=== PATIENT | male | born 1970 | race Caucasian/White ===

== ENCOUNTER 2024-04-05 05:42 | Emergency (ER) | payer BC, OTHER ==
[~2024-04-05] VITALS: Ht 180.3 cm; Wt 88.5 kg
[2024-04-05] MEDS: SODIUM CHLORIDE 0.9% 1,000 ML IV ONE (06:30)
[2024-04-05] MEDS: IOHEXOL 300 MG/ML 100ML BOTTLE IJ ONE (07:00)
[2024-04-05 07:38] VITALS: PULSE 77; RESP 17; TEMP 98; O2SAT 97
[2024-04-05 07:39] LABS: Basophils # (auto) 0 10 ^3/uL (0-0.2); Eosinophils # (auto) 0 10 ^3/uL (0-0.8); Hemoglobin 14.5 g/dL (13.5-17.5); Lymphocytes # (auto) 0.5 10 ^3/uL (0.4-5.4); Monocytes # (auto) 0.4 10 ^3/uL (0-1.3); Neutrophils # (auto) 6.7 10 ^3/uL (1.6-8.6)
[2024-04-05 07:41] LABS: Basophils % (auto) 0.2 % (0.0-2.0); Eosinophils % (auto) 0.3 % (0.0-7.0); Hematocrit 40.6 % (41.0-53.0); Mean Corpuscular Hemoglobin 34.5 pg (28.0-32.0); Mean Corpuscular Hgb Conc. 35.7 g/dL (32.0-36.0); Mean Corpuscular Volume 96.5 fL (80.0-100.0); Monocytes % (auto) 5.4 % (0.0-12.0); Neutrophils % (auto) 87.1 % (37.0-80.0); Platelet Count (auto) 277 10^3/uL (140-450); White Blood Cell 7.7 10^3/uL (4.4-10.8)
[2024-04-05 07:43] LABS: Anion Gap 7 (5-15); Carbon Dioxide 26 mmol/L (20-31); Chloride 108 mmol/L (98-107); Potassium 4.1 mmol/L (3.5-5.1); Sodium 141 mmol/L (136-145)
[2024-04-05 07:44] LABS: Calcium 9.7 mg/dL (8.7-10.4)
[2024-04-05 07:49] LABS: BUN/Creatinine Ratio 14.9 (10.0-20.0); Blood Alcohol < 3.0 mg/dL (<10); Blood Urea Nitrogen 15 mg/dL (9-23); Glucose 103 mg/dL (74-106)
[2024-04-05] MEDS: ONDANSETRON HCL 4 MG/2 ML VIAL IV ONE (08:06)
[2024-04-05] MEDS: MORPHINE SULFATE 4 MG/ML SYR/VIAL IV ONE (08:06)
[2024-04-05 08:07] LABS: Urine Bacteria None Seen /hpf (None Seen)
[2024-04-05 08:29] LABS: Urine Blood 1+ /uL (Negative); Urine Clarity Clear (Clear); Urine Color Light-Yellow (Yellow); Urine Protein, UAD TRACE (Negative); Urine Urobilinogen Normal (Negative); Urine WBC <1 /hpf (0 - 3)
[2024-04-05 08:38] LABS: Urine Specific Gravity > 1.035 (1.001-1.035)
[2024-04-05 09:58] VITALS: BP 128/77; PULSE 63; RESP 17; O2SAT 97
== END 2024-04-05 10:05 | disposition home or self-care (01) ==
LOC: ER 05:42 → EDBD 05:42 → ER 10:05
DX: M54.50 Low back pain, unspecified (principal); M54.2 Cervicalgia; R10.2 Pelvic and perineal pain; M79.18 Myalgia, other site; V49.88XA Car occupant (driver) (passenger) injured in other specified transport accidents, initial encounter; Y93.I9 Activity, other involving external motion; Y92.488 Other paved roadways as the place of occurrence of the external cause; Y99.8 Other external cause status
CPT/HCPCS: 36415; 70450; 71260; 72125; 74177; 80048; 80320; 81001; 84484; 85025; 96361; 96374; 96375; 99285; J2270; J2405; J7030; Q9967

== ENCOUNTER 2024-11-28 10:23 | Day surgery (SDC) | payer OTHER ==
[2024-11-26 12:10] LABS: Urine Bacteria None Seen /hpf (None Seen)
[2024-11-26 12:13] LABS: Basophils # (auto) 0 10 ^3/uL (0-0.2); Basophils % (auto) 0.5 % (0.0-2.0); Eosinophils # (auto) 0.1 10 ^3/uL (0-0.8); Eosinophils % (auto) 2.4 % (0.0-7.0); Hematocrit 44.8 % (41.0-53.0); Lymphocytes # (auto) 0.8 10 ^3/uL (0.4-5.4); Lymphocytes % (auto) 21.8 % (10.0-50.0); Mean Corpuscular Hemoglobin 32.7 pg (28.0-32.0); Mean Corpuscular Hgb Conc. 35.6 g/dL (32.0-36.0); Mean Corpuscular Volume 91.8 fL (80.0-100.0); Monocytes # (auto) 0.3 10 ^3/uL (0-1.3); Monocytes % (auto) 9.1 % (0.0-12.0); Neutrophils # (auto) 2.4 10 ^3/uL (1.6-8.6); Neutrophils % (auto) 66.2 % (37.0-80.0); Nucleated Red Blood Cells % 0.4 %; Platelet Count (auto) 301 10^3/uL (140-450); Red Blood Cells 4.88 10^6/uL (4.5-5.90); Red Cell Distribution Width 13.3 % (11.8-14.3); White Blood Cell 3.6 10^3/uL (4.4-10.8)
[2024-11-26 12:30] LABS: Urine Blood TRACE /uL (Negative); Urine Clarity Clear (Clear); Urine Color Light-Yellow (Yellow); Urine Protein, UAD Negative (Negative); Urine Specific Gravity 1.007 (1.001-1.035); Urine Squamous Epithelial Cell None Seen /hpf (<5); Urine Urobilinogen Normal (Negative); Urine WBC 1 /HPF (0-3); Urine pH 5.5 (5.0-9.0)
[2024-11-26 12:39] LABS: INR 0.96 (0.9-1.15); Prothrombin Time 10.2 sec (9.3-11.8)
[2024-11-26 13:00] LABS: Alanine Aminotransferase 12 U/L (7-40); Alkaline Phosphatase 66 U/L (46-116); Anion Gap 8 (5-15); BUN/Creatinine Ratio 14.6 (10.0-20.0); Blood Urea Nitrogen 14 mg/dL (9-23); Calcium 9.7 mg/dL (8.7-10.4); Carbon Dioxide 23 mmol/L (20-31); Glucose 103 mg/dL (74-106); Sodium 139 mmol/L (136-145); Total Protein 6.8 g/dL (5.7-8.2)
[2024-11-26 13:01] LABS: Albumin 4.8 g/dL (3.2-4.8)
[2024-11-26 13:02] LABS: Aspartate Aminotransferase 13 U/L (13-40); Bilirubin, Total 0.8 mg/dL (0.2-1.0); Chloride 108 mmol/L (98-107)
[~2024-11-28] VITALS: Ht 180.3 cm; Wt 88.9 kg
[2024-11-28] MEDS ORDERED: ceFAZolin 2 GM/D5W50ml 50 ML IV ONE (12:21)
[2024-11-28] MEDS ORDERED: GABAPENTIN 300 MG CAP PO ONE (15:00)
[2024-11-28] MEDS ORDERED: ACETAMINOPHEN IV 1000 MG/100ML (10MG/ML) IV ONE ×2 (15:00→15:08)
[2024-11-28] MEDS ORDERED: CELECOXIB 100 MG CAP PO ONE (15:00)
[2024-11-28] MEDS ORDERED: LIDOCAINE HCL 2% TOP JELLY 5ML TOP ONE (15:06)
[2024-11-28] MEDS ORDERED: GLYCOPYRROLATE 0.2 MG/ML 1ML VIAL ONE (15:07)
[2024-11-28] MEDS ORDERED: PROPOFOL 10 MG/ML 20 ML IV ONE (15:07)
[2024-11-28] MEDS ORDERED: fentaNYL CITRATE 100 MCG/2 ML VL ONE (15:09)
[2024-11-28] MEDS: BUPIVACAINE 0.5% P/F INJ 10 ML VIAL ONE (15:28)
[2024-11-28] MEDS: LIDOCAINE W/ EPINEPHRINE 1% 20ML VIAL ONE (15:28)
[2024-11-28 15:58] VITALS: TEMP 98.5; O2SAT 99
[2024-11-28] MEDS ORDERED: ACE3T PO (15:59)
[2024-11-28] MEDS ORDERED: ONDANSETRON HCL 4 MG/2 ML VIAL IV PRN (16:15)
[2024-11-28] MEDS ORDERED: FLUMAZENIL 0.1 MG/ML INJ 10ML MDV IV PRN (16:15)
[2024-11-28] MEDS ORDERED: NALOXONE HCL 0.4 MG/ML VIAL IV PRN (16:15)
[2024-11-28] MEDS ORDERED: fentaNYL CITRATE 100 MCG/2 ML VL IV PRN (16:15)
[2024-11-28] MEDS ORDERED: hydrALAZINE HCL 20 MG/ML VL IV PRN (16:15)
[2024-11-28] MEDS ORDERED: ePHEDrine SULFATE 50 MG/ML AMP IV PRN (16:15)
[2024-11-28] MEDS ORDERED: HYDROmorphone HCL 2 MG/ML VL/or syr IV PRN (16:15)
[2024-11-28] MEDS: oxyCODONE HCL 5MG TAB PO PRN (16:32)
[2024-11-28 17:02] VITALS: BP 135/67; PULSE 64; RESP 11; O2SAT 97
--- NOTE | 2024-11-28 17:08 | DVHOP ---
DATE OF SURGERY: 11/28/2024 PREOPERATIVE DIAGNOSIS: Left inguinal hernia. POSTOPERATIVE DIAGNOSIS: Left inguinal hernia. SURGEON: Hector Powers MD COMPUTATIONAL THEORY SCIENTIST: Leobardo Baker NP ANESTHESIA: General endotracheal. ANESTHESIOLOGIST: Dennis Cutler. PROCEDURE: Repair of left direct inguinal hernia. DESCRIPTION OF PROCEDURE: Under adequate anesthesia with the patient's skin prepped and draped, the left groin was infiltrated with 0.25% Marcaine and 0.5% Xylocaine with epinephrine mixture. An incision was made deepened with electrocautery through adipose tissues down onto the fibers of the external oblique aponeurosis. The external ring was dilated and a direct herniation was evident. The cord structures were encircled with a Rony drain retracted laterally. A search for an indirect sac was unproductive. The direct herniation was then repaired using nonabsorbable sutures through conjoint tendon and reflecting portion of Poupart's fascia. The wound was irrigated. Irrigant was aspirated. The ilioinguinal nerve was visualized, protected during the operation, and placed into its normal anatomical position after the procedure. The cord structures were returned to their normal anatomical position. The testicle was returned into its normal anatomical position. The wound was closed using Monocryl sutures, Dermabond glue, and Steri-Strips. The patient remained stable throughout the procedure, left the operating room following an accurate needle and sponge counts. His , Coral, was informed by phone at [phone]. MD ELBERT Mayfield/LIAM TID: [id number] RECEIPT: [id number]
== END 2024-11-28 17:12 | disposition home or self-care (01) ==
LOC: SUR 10:23
PROVIDERS: ATTEND Surgery
DX: K40.90 Unilateral inguinal hernia, without obstruction or gangrene, not specified as recurrent (principal); E66.3 Overweight; Z68.27 Body mass index [BMI] 27.0-27.9, adult; Z79.899 Other long term (current) drug therapy; Z98.890 Other specified postprocedural states; Z87.891 Personal history of nicotine dependence
CPT/HCPCS: 36415; 49505; 80053; 81001; 85025; 85610; 85730; 86850; 86900; 86901; C1781; J0690; J2704; J3490; J0131

== ENCOUNTER 2024-12-07 05:28 | Inpatient (IN) | payer OTHER ==
[~2024-12-07] VITALS: Ht 180.3 cm; Wt 91.7 kg
[~2024-12-07 05:28] MED LIST: ACE3T PO
--- NOTE | 2024-12-07 06:54 | ED.PDOC ---
HPI Allergic reaction HPI Comments This is a 54 year old male presenting to the ED with chief complaint of allergic reaction. Patient reports that he had a recent hernia repair performed on 11/28/24 and left wrist surgery, however, since then he has been experiencing generalized urticaria with associated itchiness and lower lip swelling. Patient relays that he was prescribed Brooks, Docusate, and Amoxicillin after his surgeries, however, his rashes continued to occur even after finishing these medications. Patient states that he went to yesterday and was given Prednisone and a steroid injection, but no relief has been noted. Patient notes he is currently taking Benadryl around the clock with minimal relief at this time. Patient denies any throat swelling, SOB, cough, or facial swelling. Chief Complaint: Rash Time Seen by MD: 06:49 Reviewed Notes: Nurses Notes, Medications, Allergies Allergies: Coded Allergies: NO KNOWN ALLERGIES (Unverified , 04/05/24) Home Meds Active Scripts Acetaminophen W/ Codeine (Tylenol W/Cod #3) 1 Tab Tb, 1 TAB PO Q4HP PRN for 10 Days, #50 TAB Prov:SANDRA PRIETO SENIOR ELECTRICAL ESTIMATOR 11/28/24 Information Source: Patient Mode of Arrival: Ambulatory Severity: Moderate Rash: Moderate SOB: None Difficulty swallowing: None Pruritus: Moderate Timing: Days Duration: Since onset Prehospital treatment: None Location: Generalized Exposed to: Unknown Developed: Pruritus, Rash History of: None Modyifying Factors: Diphenhydramine Past Medical History PAST MEDICAL HISTORY: Denies Surgical History: Hernia Repair Surgical History (Other): Left wrist surgery Family History Family History: Reviewed,noncontributory to illness Social History Smoker: Non-Smoker Alcohol: Denies ETOH Use Drugs: Denies Drug Use Lives In: Home Constitutional: denies: chills, diaphoresis, fatigue, fever, malaise, sweats, weakness, others EENTM: denies: blurred vision, double vision, ear bleeding, ear discharge, ear drainage, ear pain, ear ringing, eye pain, eye redness, hearing loss, mouth pain, mouth swelling, nasal discharge, nose bleeding, nose congestion, nose pain, photophobia, tearing, throat pain, throat swelling, voice changes, others Respiratory: denies: cough, hemoptysis, orthopnea, SOB at rest, shortness of breath, SOB with excertion, stridor, wheezing, others Cardiovascular: denies: chest pain, dizzy spells, diaphoresis, Dyspnea on exertion, edema, irregular heart beat, left arm pain, lightheadedness, palpitations, PND, syncope, others Gastrointestinal: denies: abdomen distended, abdominal pain, blood streaked bowels, constipated, diarrhea, dysphagia, difficulty swallowing, hematemesis, melena, nausea, poor appetite, poor fluid intake, rectal bleeding, rectal pain, vomiting, others Genitourinary: denies: burning, dysuria, flank pain, frequency, hematuria, incontinence, penile discharge, penile sore, pain, testicle pain, testicle swelling, urgency, others Neurological: denies: dizziness, fainting, headache, left sided numbness, left sided weakness, numbness, paresthesia, pre-existing deficit, right sided numbness, right sided weakness, seizure, speech problems, tingling, tremors, weakness, others Musculoskeletal: denies: back pain, gout, joint pain, joint swelling, muscle pain, muscle stiffness, neck pain, others Integumetry: denies: bruises, change in color, change in hair/nails, dryness, laceration, lesions, lumps, rash, wounds, others Allergic/Immunocompromised: reports: Hives, Itching; denies: Difficulty Healing, Frequent Infections, others Hematologic/Lymphatic: denies: anemia, blood clots, easy bleeding, easy bruising, swollen glands, others Endocrine: denies: excessive hunger, excessive sweating, excessive thirst, excessive urination, flushing, intolerance to cold, intolerance to heat, unexplained weight gain, unexplained weight loss, others Psychiatric: denies: anxiety, bipolar disorder, depression, hopeless, panic disorder, schizophrenia, sleepless, suicidal, others All Other Systems: Reviewed and Negative Physical Exam General Appearance: No Apparent Distress, Normal HEENT: Normal ENT Inspection, Pharynx Normal, TMs Normal Neck: Full Range of Motion, Non-Tender, Normal, Normal Inspection Respiratory: Chest Non-Tender, Lungs Clear, No Accessory Muscle Use, No Respira tory Distress, Normal Breath Sounds Cardiovascular: No Edema, No JVD, No Murmur, No Gallop, Normal Peripheral Pulses, Regular Rate/Rhythm Breast Exam: Deferred Gastrointestinal: No Organomegaly, Non Tender, No Pulsatile Mass, Normal Bowel Sounds, Soft Genitalia: Deferred Pelvic: Deferred Rectal: Deferred Extremities: No calf tenderness, Normal capillary refill, Normal inspection, Normal range of motion, Non-tender, No pedal edema Musculoskeletal : Apperance: Normal Neurologic: Alert, job captain II-XII nml as Tested, No Motor Deficits, Normal Affect, Normal Mood, No Sensory Deficits Cerebellar Function: Normal Reflexes: Normal Skin: Dry, Warm, Other (Generalized urticaria noted.) Lymphatic: No Adenopathy Was a procedure done? Was a procedure done?: No Differential diagnosis (all) Differential Diagnosis: Hypotension, Urticaria X-Ray, Labs, Meds, VS Vital Signs Date Time Temp Pulse Resp B/P (MAP) Pulse Ox O2 Delivery O2 Flow Rate FiO2 12/07/24 08:44 97.5 65 16 138/85 (102) 98 97.5 12/07/24 07:28 64 17 95 Room Air* 0 21 12/07/24 06:58 97.6 60 17 143/89 (107) 95 97.6 12/07/24 05:28 97.8 65 17 136/92 (107) 95 97.8 Lab Test 12/07/24 07:30 12/07/24 07:04 Range/Units Urine Color Light-yellow Yellow Urine Clarity Clear Clear Urine pH 5.0 5.0-9.0 Urine Specific [place] 1.012 1.001-1.035 Urine Protein Negative Negative Urine Ketones Negative Negative Urine Blood Negative Negative /uL Urine Nitrite Negative Negative Urine Bilirubin Negative Negative Urine Urobilinogen Normal Negative mg/dL Urine Leukocyte Esterase Negative Negative /uL Urine RBC 1 0 - 3 /hpf Urine Microscopic WBC 1 0-3 /HPF Urine Squamous Epithelial Cells None seen <5 /hpf Urine Bacteria None seen None Seen /hpf Urine Glucose Normal Normal mg/dL White Blood Count 11.5 H 4.4-10.8 10^3/uL Red Blood Count 4.72 4.5-5.90 10^6/uL Hemoglobin 15.8 13.5-17.5 g/dL Hematocrit 44.0 41.0-53.0 % Mean Corpuscular Volume 93.2 80.0-100.0 fL Mean Corpuscular Hemoglobin 33.5 H 28.0-32.0 pg Mean Corpuscular Hemoglobin Concent 35.9 32.0-36.0 g/dL Red Cell Distribution Width 13.3 11.8-14.3 % Platelet Count 359 140-450 10^3/uL Mean Platelet Volume 6.6 L 6.9-10.8 fL Neutrophils (%) (Auto) 88.9 H 37.0-80.0 % Lymphocytes (%) (Auto) 7.3 L 10.0-50.0 % Monocytes (%) (Auto) 3.4 0.0-12.0 % Eosinophils (%) (Auto) 0.2 0.0-7.0 % Basophils (%) (Auto) 0.2 0.0-2.0 % Neutrophils # (Auto) 10.2 H 1.6-8.6 10 ^3/uL Lymphocytes # (Auto) 0.8 0.4-5.4 10 ^3/uL Monocytes # (Auto) 0.4 0-1.3 10 ^3/uL Eosinophils # (Auto) 0 0-0.8 10 ^3/uL Basophils # (Auto) 0 0-0.2 10 ^3/uL Nucleated Red Blood Cells 0.1 % Sodium Level 141 136-145 mmol/L Potassium Level 4.0 3.5-5.1 mmol/L Chloride Level 106 98-107 mmol/L Carbon Dioxide Level 23 20-31 mmol/L Anion Gap 12 5-15 Blood Urea Nitrogen 18 9-23 mg/dL Creatinine 1.06 0.700-1.30 mg/dL Glomerular Filtration Rate Calc 82 >90 mL/min BUN/Creatinine Ratio 17.0 10.0-20.0 Serum Glucose 108 H 74-106 mg/dL Calcium Level 9.7 8.7-10.4 mg/dL Current Medications Medications (Trade) Dose Ordered Sig/Stephanie Route Start Time Stop Time Status Last Admin Sodium Chloride 1,000 ml @ 1,000 mls/hr Q1H ONCE IV 12/07/24 06:45 12/07/24 07:44 DC 12/07/24 07:02 Famotidine (Pepcid Injection) 20 mg ONCE ONCE IV 12/07/24 06:45 12/07/24 06:46 DC 12/07/24 07:03 Methylprednisolone Sodium Succinate (Solu Medrol) 62.5 mg ONCE ONCE IV 12/07/24 06:45 12/07/24 06:46 DC 12/07/24 07:03 CT Abd/Pel W/ IV Con: [facility] [id number] [facility] [address] Ph: [phone] DIAGNOSTIC IMAGING Diagnostic Imaging Report : [id number] Signed PATIENT: TAMIR MARTINEZ ACCT: [id number] UNIT: [id number] : 1970 LOC: ER ROOM / BED: / AGE / SEX: 54 / M ADM STATUS: REG ER SERVICE [id number] ORDERING PHYSICIAN: ABISAI JAMISON MD PROCEDURE(s): ABPLIV - CT AB PEL WITH IV CON ONLY REASON: lower abdominal pain and swelling s/p inguinal surgery ORDER NUMBER(s): [id number], ACCESSION NUMBER(s): [id number] CT CT AB PEL WITH IV CON ONLY INDICATION: lower abdominal pain and swelling s/p inguinal surgery EXAM DATE: 12/07/2024 08:13 AM COMPARISON: CT CT CHEST/AB/PL W CON- IV ONLY on DOS: 04/05/24 RADIATION DOSE: CTDIvol: 11.58 mGy, DLP: 676.31 mGy*cm PROCEDURE: Helical CT images were obtained of the abdomen and pelvis with IV contrast Sagittal and coronal reconstructions are provided. ORAL CONTRAST: None. ADDITIONAL IMAGES / REFORMATS: None All CT scans at this medical facility are performed using dose modulation techniques as appropriate to a performed exam including the following: Automated exposure control was utilized; adjustment of the MA and/or KV according to patient size; and use of iterative reconstruction technique. FINDINGS: LUNG BASE: 6 mm left basilar subpleural pulmonary nodule. LIVER: Normal. GALLBLADDER AND BILIARY TREE: No calcified gallstones. Normal caliber wall. No intra- or extrahepatic biliary ductal dilation. PANCREAS: Normal. SPLEEN: Normal. BOWEL: Normal. Normal appendix. ADRENALS: Normal. KIDNEYS AND URETER: 1.1 cm nonobstructive right kidney stone. BLADDER: Normal. REPRODUCTIVE ORGANS: Normal. LYMPH NODES:No lymphadenopathy. PERITONEUM: No ascites or free air. No other fluid collection. VESSELS: Scattered atherosclerotic calcifications are noted. RETROPERITONEUM: Normal. ABDOMINAL WALL: Fluid in the left inguinal canal could be a seroma. BONES: Scattered osseous degenerative changes are noted. IMPRESSION: No acute intraabdominal abnormality. 1.1 cm nonobstructive right kidney stone. Fluid near the left inguinal canal could be a seroma measures 4.2 cm. ATED BY: ROBERTO FISH MD DICTATED DATE/TIME: 12/07/24902 SIGNED BY: ROBERTO FISH MD SIGNED DATE/TIME: 12/07/24902 CC: Images Reviewed?: Images reviewed and evaluated by me Time of 1ST Reevaluation: 07:49 Reevaluation 1ST: Unchanged Patient Education/Counseling: Diagnosis, Treatment Family Education/Counseling: No Family Present Departure 1 Departure Time of Disposition: 10:00 (Patient with a large kidney stone in his well as a likely seroma. The patient has consistent urticaria and concerning for allergic reaction. We will admit patient for further workup and expert consultation) Impression: Primary Impression: Renal colic on right side Additional Impressions: Urticaria Seroma Disposition: ADMITTED INPATIENT Admit to: Med Surg Condition: Serious Critical Care Note Critical Care Time?: No Stability Stability form required: No Heart Score Heart Score: Heart Score Response (Comments) Value History N/A 0 EKG N/A 0 Age N/A 0 Risk Factors N/A 0 Troponin N/A 0 Total 0 I personally scribed for ABISAI JAMISON MD ([email or web address]) on 12/07/24 at 06:54. Electronically submitted by Philippe Bustos ([email or web address]). I personally scribed for ABISAI JAMISON MD ([email or web address]) on 12/07/24 at 09:44. Electronically submitted by Philippe Bustos ([email or web address]). ABISAI JAMISON MD Dec 07, 2024 06:54
[2024-12-07] MEDS: SODIUM CHLORIDE 0.9% 1,000 ML IV ONE (07:02)
[2024-12-07] MEDS: methylPREDNISolone SOD SUCC 125 MG/2 ML VL IV ONE (07:03)
[2024-12-07] MEDS: FAMOTIDINE (10MG/ML) 2ML VL IV ONE (07:03)
[2024-12-07 07:28] VITALS: PULSE 64; RESP 17; O2SAT 95
[2024-12-07 07:28] LABS: Basophils # (auto) 0 10 ^3/uL (0-0.2); Basophils % (auto) 0.2 % (0.0-2.0); Eosinophils # (auto) 0 10 ^3/uL (0-0.8); Eosinophils % (auto) 0.2 % (0.0-7.0); Hemoglobin 15.8 g/dL (13.5-17.5); Lymphocytes # (auto) 0.8 10 ^3/uL (0.4-5.4); Lymphocytes % (auto) 7.3 % (10.0-50.0); Mean Corpuscular Hemoglobin 33.5 pg (28.0-32.0); Mean Corpuscular Hgb Conc. 35.9 g/dL (32.0-36.0); Mean Corpuscular Volume 93.2 fL (80.0-100.0); Monocytes # (auto) 0.4 10 ^3/uL (0-1.3); Monocytes % (auto) 3.4 % (0.0-12.0); Neutrophils # (auto) 10.2 10 ^3/uL (1.6-8.6); Neutrophils % (auto) 88.9 % (37.0-80.0); Nucleated Red Blood Cells % 0.1 %; Platelet Count (auto) 359 10^3/uL (140-450); Red Blood Cells 4.72 10^6/uL (4.5-5.90); Red Cell Distribution Width 13.3 % (11.8-14.3); White Blood Cell 11.5 10^3/uL (4.4-10.8)
[2024-12-07 07:45] LABS: Chloride 106 mmol/L (98-107); Sodium 141 mmol/L (136-145)
[2024-12-07 07:46] LABS: Anion Gap 12 (5-15); Calcium 9.7 mg/dL (8.7-10.4); Carbon Dioxide 23 mmol/L (20-31)
[2024-12-07 07:51] LABS: Blood Urea Nitrogen 18 mg/dL (9-23)
[2024-12-07 07:53] LABS: Glucose 108 mg/dL (74-106)
[2024-12-07 07:55] LABS: Urine Bacteria None Seen /hpf (None Seen)
[2024-12-07 08:10] LABS: Urine Blood Negative /uL (Negative); Urine Clarity Clear (Clear); Urine Color Light-Yellow (Yellow); Urine Protein, UAD Negative (Negative); Urine Specific Gravity 1.012 (1.001-1.035); Urine Squamous Epithelial Cell None Seen /hpf (<5); Urine Urobilinogen Normal (Negative); Urine WBC 1 /HPF (0-3)
[2024-12-07] MEDS: IOHEXOL 300 MG/ML 100ML BOTTLE IJ ONE (08:22)
--- NOTE | 2024-12-07 09:06 | DVH ---
CT CT AB PEL WITH IV CON ONLY INDICATION: lower abdominal pain and swelling s/p inguinal surgery EXAM DATE: 12/07/2024 08:13 AM COMPARISON: CT CT CHEST/AB/PL W CON- IV ONLY on DOS: 04/05/24 RADIATION DOSE: CTDIvol: 11.58 mGy, DLP: 676.31 mGy*cm PROCEDURE: Helical CT images were obtained of the abdomen and pelvis with IV contrast Sagittal and co estefany reconstructions are provided. ORAL CONTRAST: None. ADDITIONAL IMAGES / REFORMATS: None All CT s cans at this medical facility are performed using dose modulation techniques as appropriate to a perf ormed exam including the following: Automated exposure control was utilized; adjustment of the MA and /or KV according to patient size; and use of iterative reconstruction technique. FINDINGS: LUNG BASE: 6 mm left basilar subpleural pulmonary nodule. LIVER: Normal. GALLBLADDER AND BILIARY TREE: No calcified gallstones. Normal caliber wall. No intra- or extrahepatic biliary ductal dilation. PANCREAS: Normal. SPLEEN: Normal. BOWEL: Normal. Normal appendix. ADRENALS: Normal. KIDNEYS AND URETER: 1.1 cm nonobstructive right kidney stone. BLADDER: Normal. REPRODUCTIVE ORGANS: Normal. LYMPH NODES:No lymphadenopathy. PERITONEUM: No ascites or free air. No other fluid collection. VESSELS: Scattered atherosclerotic calcifications are noted. RETROPERITONEUM: Normal. ABDOMINAL WALL: Fluid in the left inguinal canal could be a seroma. BONES: Scattered osseous degenerative changes are noted. IMPRESSION: No acute intraabdominal abnormality. 1.1 cm nonobstructive right kidney stone. Fluid near the left inguinal canal could be a seroma measures 4.2 cm.
--- NOTE | 2024-12-07 16:57 | DVHHP2 ---
History of Present Illness Reason for Visit: allergy reaction History of Present Illness This is a 54-year-old male presenting to the ED with a chief complaint of an allergic reaction. He reports undergoing a left inguinal hernia repair on 11/28/24 . Following these procedures, he was prescribed [place], Docusate, and Amoxicillin. Since then, he has developed persistent, generalized urticaria with associated pruritus and lower lip swelling. Despite a course of Prednisone and a steroid injection, symptoms have not improved. The patient has been taking Benadryl around the clock with minimal relief. He denies any throat swelling, shortness of breath, cough, or facial swelling. He sought care at an urgent care without improvement. Allergies: No known drug allergies. Past Medical History: Hernia repair Denies other medical history Surgical History: Left wrist surgery Hernia repair Family History: Non-contributory Social History: Denies tobacco, alcohol, or drug use Lives at home Review of Systems Review of Systems Negative except for pruritus and rash. Allergies: Coded Allergies: NO KNOWN ALLERGIES (Unverified , 04/05/24) Medications Current Medications Medications Dose Ordered Sig/Stephanie Route Start Time Stop Time Status Last Admin Dose Admin Enoxaparin Sodium 40 mg DAILY SC 12/08/24 10:00 Prednisone 40 mg DAILY PO 12/08/24 10:00 Acetaminophen 325 mg Q4HP PRN PO 12/07/24 14:45 Pantoprazole Sodium 40 mg DAILY IV 12/08/24 10:00 Exam Vital Signs Vital Signs Date Time Temp Pulse Resp B/P (MAP) Pulse Ox O2 Delivery O2 Flow Rate FiO2 12/07/24 14:24 98.0 73 17 122/66 (84) 95 98.0 12/07/24 07:28 Room Air* 0 21 Exam General: No acute distress Skin: Diffuse urticaria, no angioedema HEENT: No oropharyngeal edema Respiratory: Lungs clear to auscultation Cardiac: RRR, no murmurs GI: Soft, nontender Neuro: Alert and oriented Extremities: No edema Labs/Xrays Labs Test 12/07/24 07:30 12/07/24 07:04 Range/Units Urine Color Light-yellow Yellow Urine Clarity Clear Clear Urine pH 5.0 5.0-9.0 Urine Specific [place] 1.012 1.001-1.035 Urine Protein Negative Negative Urine Ketones Negative Negative Urine Blood Negative Negative /uL Urine Nitrite Negative Negative Urine Bilirubin Negative Negative Urine Urobilinogen Normal Negative mg/dL Urine Leukocyte Esterase Negative Negative /uL Urine RBC 1 0 - 3 /hpf Urine Microscopic WBC 1 0-3 /HPF Urine Squamous Epithelial Cells None seen <5 /hpf Urine Bacteria None seen None Seen /hpf Urine Glucose Normal Normal mg/dL White Blood Count 11.5 H 4.4-10.8 10^3/uL Red Blood Count 4.72 4.5-5.90 10^6/uL Hemoglobin 15.8 13.5-17.5 g/dL Hematocrit 44.0 41.0-53.0 % Mean Corpuscular Volume 93.2 80.0-100.0 fL Mean Corpuscular Hemoglobin 33.5 H 28.0-32.0 pg Mean Corpuscular Hemoglobin Concent 35.9 32.0-36.0 g/dL Red Cell Distribution Width 13.3 11.8-14.3 % Platelet Count 359 140-450 10^3/uL Mean Platelet Volume 6.6 L 6.9-10.8 fL Neutrophils (%) (Auto) 88.9 H 37.0-80.0 % Lymphocytes (%) (Auto) 7.3 L 10.0-50.0 % Monocytes (%) (Auto) 3.4 0.0-12.0 % Eosinophils (%) (Auto) 0.2 0.0-7.0 % Basophils (%) (Auto) 0.2 0.0-2.0 % Neutrophils # (Auto) 10.2 H 1.6-8.6 10 ^3/uL Lymphocytes # (Auto) 0.8 0.4-5.4 10 ^3/uL Monocytes # (Auto) 0.4 0-1.3 10 ^3/uL Eosinophils # (Auto) 0 0-0.8 10 ^3/uL Basophils # (Auto) 0 0-0.2 10 ^3/uL Nucleated Red Blood Cells 0.1 % Sodium Level 141 136-145 mmol/L Potassium Level 4.0 3.5-5.1 mmol/L Chloride Level 106 98-107 mmol/L Carbon Dioxide Level 23 20-31 mmol/L Anion Gap 12 5-15 Blood Urea Nitrogen 18 9-23 mg/dL Creatinine 1.06 0.700-1.30 mg/dL Glomerular Filtration Rate Calc 82 >90 mL/min BUN/Creatinine Ratio 17.0 10.0-20.0 Serum Glucose 108 H 74-106 mg/dL Calcium Level 9.7 8.7-10.4 mg/dL Assessment/Plan Assessment/Plan #Severe, allergic reaction #s/p hernia repair, left 11/28/24 #Nephrolitihiasis #1.1 cm nonobstructive right renal stone #6 mm left basilar pulmonary nodule #Fluid in the left inguinal canal, possibly a seroma measuring up to 1.2 cm Admit Med/Surg Tylenol PRN Protonix IV Prednisone PO 40 mg daily Fu with surgeon and PCP due to seroma and pulmonary nodule Case discussed with Dr Templeton Plan discussed with: Patient, Other My Orders Orders - CHINO SILVER Procedure Category Date Status Time Admit ADMIT 12/07/24 Transmitted 14:34 Code Status CODE 12/07/24 Transmitted 14:34 Vital Signs [facility] 12/07/24 In Process 14:34 Review Orders With [facility] 12/07/24 In Process Adm. 14:34 Regular Diet DIET 12/07/24 Transmitted Dinner Notify Md Of Changes [facility] 12/07/24 In Process From Base 14:34 Advance Directive [facility] 12/07/24 In Process 14:34 Patient Condition ORDERS 12/07/24 Transmitted 14:34 Allergies [facility] 12/07/24 In Process 14:34 Enoxaparin Sodium PHA 12/08/24 In Process (Lovenox) 10:00 Prednisone Tablet PHA 12/08/24 In Process 10:00 Acetaminophen Tablet PHA 12/07/24 In Process (Tylenol Tablet) 14:45 Pantoprazole PHA 12/08/24 In Process (Protonix) 10:00 Date of Service: Dec 07, 2024 Billing Provider: CHINO SILVER Common Visit Codes: 28086-EODMLCG INP/OBS CARE (HIGH) Secondary Visit Codes: 13083-AHVWGFUW CARE PLAN 30 MINUTES CHINO SILVER Dec 07, 2024 16:57
[2024-12-07 17:00] VITALS: BP 114/65; PULSE 65; RESP 18; TEMP 98.1; O2SAT 95
[2024-12-07] MEDS: ACETAMINOPHEN 325 MG TAB PO PRN (19:36)
[2024-12-07 20:00] VITALS: BP 122/71; PULSE 83; RESP 16; TEMP 98.1; O2SAT 98
[2024-12-08] VITALS (8 sets, daily range): BP systolic 112–147; BP diastolic 63–80; PULSE 57–70; RESP 16–20; TEMP 97–98.4; O2SAT 94–97
[2024-12-08] MEDS: ENOXAPARIN SOD 40 MG/0.4 ML SYRINGE SC SCH (09:56)
[2024-12-08] MEDS: PANTOPRAZOLE 40 MG/10 ML VIAL INJ IV SCH (09:56)
[2024-12-08] MEDS: methylPREDNISolone SOD SUCC 40 MG/ML VL IV ONE (09:56)
[2024-12-08] MEDS: diphenhdrAMINE HCL 50 MG/1 ML VL IV ONE (09:57)
[2024-12-08] MEDS ORDERED: predniSONE 20 MG TAB PO SCH (10:00)
--- NOTE | 2024-12-08 11:25 | DVHPN2 ---
Progress Note Objective vital signs Vital Sign Date Time Temp Pulse Resp B/P (MAP) Pulse Ox O2 Delivery O2 Flow Rate FiO2 12/08/24 09:00 97.6 68 16 133/74 (93) 95 97.6 12/08/24 08:10 Room Air* 0 21 Total Intake and Output 12/07/24 12/07/24 12/08/24 15:00 23:00 07:00 Intake Total 1000 ml 700 ml Balance 1000 ml 700 ml medications Current Medications Medications Dose Ordered Sig/Stephanie Route Start Time Stop Time Status Last Admin Dose Admin Enoxaparin Sodium 40 mg DAILY SC 12/08/24 10:00 12/08/24 09:56 40 MG Prednisone 40 mg DAILY PO 12/08/24 10:00 Cancel Acetaminophen 325 mg Q4HP PRN PO 12/07/24 14:45 12/07/24 19:36 325 MG Pantoprazole Sodium 40 mg DAILY IV 12/08/24 10:00 12/08/24 09:56 40 MG Hydroxyzine Pamoate 25 mg Q6HP PRN PO 12/08/24 10:00 laboratory and microbiology Laboratory Tests 12/07/24 07:04 Test 12/07/24 07:04 Range/Units Serum Glucose 108 H 74-106 mg/dL My Orders My Orders Orders - CHINO SILVER Procedure Category Date Status Time Admit ADMIT 12/07/24 Transmitted 14:34 Code Status CODE 12/07/24 Transmitted 14:34 Vital Signs [facility] 12/07/24 In Process 14:34 Review Orders With SATHISH 12/07/24 In Process Adm. 14:34 Regular Diet DIET 12/07/24 Transmitted Dinner Notify Of Changes [facility] 12/07/24 In Process From Base 14:34 Advance Directive [facility] 12/07/24 In Process 14:34 Patient Condition ORDERS 12/07/24 Transmitted 14:34 Allergies SATHISH 12/07/24 In Process 14:34 Enoxaparin Sodium PHA 12/08/24 In Process (Lovenox) 10:00 Acetaminophen Tablet PHA 12/07/24 In Process (Tylenol Tablet) 14:45 Pantoprazole PHA 12/08/24 In Process (Protonix) 10:00 Mrsa Screen SAYDA 12/07/24 In Process 22:19 * Wound Consult CONS 12/08/24 Transmitted Hydroxyzine Oral PHA 12/08/24 In Process (Vistaril Oral) 10:00 CHINO SILVER RESIDENT Dec 08, 2024 11:25
--- NOTE | 2024-12-08 12:09 | DVHPNRES ---
Progress Note Date Seen: Dec 08, 2024 Resident Creating Document: CHINO SILVER RESIDENT Has the PT tested + for MRSA If YES, has PT been informed?: No Medical Necessity Reason Pt with a Central, PICC or Fol: No Subjective Review of Systems This is a 54-year-old male presenting to the ED with a chief complaint of an allergic reaction. He reports undergoing a left inguinal hernia repair on 11/28/24 . Following these procedures, he was prescribed [place], Docusate, and Amoxicillin. Since then, he has developed persistent, generalized urticaria with associated pruritus and lower lip swelling. Despite a course of Prednisone and a steroid injection, symptoms have not improved. The patient has been taking Benadryl around the clock with minimal relief. He denies any throat swelling, shortness of breath, cough, or facial swelling. He sought care at an urgent care without improvement. 12/08/24: patient had hives in his torso and abdomen today 8 am, solumedrol and bendaryl given, patient will be advised to see an loading machine operator as outpatient Objective vital signs Vital Sign Date Time Temp Pulse Resp B/P (MAP) Pulse Ox O2 Delivery O2 Flow Rate FiO2 12/08/24 09:00 97.6 68 16 133/74 (93) 95 97.6 12/08/24 08:10 Room Air* 0 21 Total Intake and Output 12/07/24 12/07/24 12/08/24 15:00 23:00 07:00 Intake Total 1000 ml 700 ml Balance 1000 ml 700 ml medications Current Medications Medications Dose Ordered Sig/Stephanie Route Start Time Stop Time Status Last Admin Dose Admin Enoxaparin Sodium 40 mg DAILY SC 12/08/24 10:00 12/08/24 09:56 40 MG Prednisone 40 mg DAILY PO 12/08/24 10:00 Cancel Acetaminophen 325 mg Q4HP PRN PO 12/07/24 14:45 12/07/24 19:36 325 MG Pantoprazole Sodium 40 mg DAILY IV 12/08/24 10:00 12/08/24 09:56 40 MG Hydroxyzine Pamoate 25 mg Q6HP PRN PO 12/08/24 10:00 Prednisone 40 mg DAILY PO 12/09/24 10:00 UNV Examination General: No acute distress Skin: Diffuse urticaria, no angioedema HEENT: No oropharyngeal edema Respiratory: Lungs clear to auscultation Cardiac: RRR, no murmurs GI: Soft, nontender Neuro: Alert and oriented Extremities: No edema laboratory and microbiology Laboratory Tests 12/07/24 07:04 Test 12/07/24 07:04 Range/Units Serum Glucose 108 H 74-106 mg/dL Problem List/Assessment/Plan Problem List/Assessment/Plan #Severe, allergic reaction #s/p hernia repair, left 11/28/24 #Nephrolitihiasis #1.1 cm nonobstructive right renal stone #6 mm left basilar pulmonary nodule #Fluid in the left inguinal canal, possibly a seroma measuring up to 1.2 cm Admit Med/Surg Tylenol PRN Protonix IV Prednisone PO 40 mg daily solumedrol and benadryl given Hydroxyzine PRN Fu with surgeon and PCP due to seroma and pulmonary nodule Case discussed with Dr Templeton Plan discussed with: Patient, Other My Orders My Orders Orders - CHINO SILVER RESIDENT Procedure Category Date Status Time Admit ADMIT 12/07/24 Transmitted 14:34 Code Status CODE 12/07/24 Transmitted 14:34 Vital Signs SATHISH 12/07/24 In Process 14:34 Review Orders With SATHISH 12/07/24 In Process Adm.Md 14:34 Regular Diet DIET 12/07/24 Transmitted Dinner Notify Md Of Changes SATHISH 12/07/24 In Process From Base 14:34 Advance Directive SATHISH 12/07/24 In Process 14:34 Patient Condition ORDERS 12/07/24 Transmitted 14:34 Allergies SATHISH 12/07/24 In Process 14:34 Enoxaparin Sodium PHA 12/08/24 In Process (Lovenox) 10:00 Acetaminophen Tablet PHA 12/07/24 In Process (Tylenol Tablet) 14:45 Pantoprazole PHA 12/08/24 In Process (Protonix) 10:00 Mrsa Screen SAYDA 12/07/24 In Process 22:19 * Wound Consult CONS 12/08/24 Transmitted Hydroxyzine Oral PHA 12/08/24 In Process (Vistaril Oral) 10:00 Prednisone Tablet PHA 12/09/24 Logged 10:00 CHINO SILVER RESIDENT Dec 08, 2024 12:09
[2024-12-08] MEDS: hydrOXYzine 25 MG TAB or CAP PO PRN (18:48)
[2024-12-09 01:00] VITALS: BP 119/76; PULSE 84; RESP 18; TEMP 97; O2SAT 98
[2024-12-09 05:00] VITALS: BP 109/80; PULSE 56; RESP 17; TEMP 97.8; O2SAT 95
[2024-12-09 09:00] VITALS: BP 127/84; PULSE 51; RESP 18; TEMP 97.5; O2SAT 96
[2024-12-09] MEDS: predniSONE 20 MG TAB PO SCH (09:05)
[2024-12-09] MEDS ORDERED: DIPH1CRE TOP (11:22)
[2024-12-09] MEDS ORDERED: PRED20TA2 PO (11:22)
[2024-12-09] MEDS ORDERED: DIPH-515 GT (11:22)
--- NOTE | 2024-12-09 11:24 | DVHDSRES ---
Discharge Summary Date of Admission Resident Creating Document: CHINO SILVER RESIDENT Dec 07, 2024 at 14:34 Date of Discharge: Dec 09, 2024 Admitting Diagnosis Allergic reaction Labs/Diagnostic Data: Laboratory Results Test 12/07/24 07:30 12/07/24 07:04 Urine Color Light-yellow (Yellow) Urine Clarity Clear (Clear) Urine pH 5.0 (5.0-9.0) Urine Specific [place] 1.012 (1.001-1.035) Urine Protein Negative (Negative) Urine Ketones Negative (Negative) Urine Blood Negative /uL (Negative) Urine Nitrite Negative (Negative) Urine Bilirubin Negative (Negative) Urine Urobilinogen Normal mg/dL (Negative) Urine Leukocyte Esterase Negative /uL (Negative) Urine RBC 1 /hpf (0 - 3) Urine Microscopic WBC 1 /HPF (0-3) Urine Squamous Epithelial Cells None seen /hpf (<5) Urine Bacteria None seen /hpf (None Seen) Urine Glucose Normal mg/dL (Normal) White Blood Count 11.5 10^3/uL (4.4-10.8) Red Blood Count 4.72 10^6/uL (4.5-5.90) Hemoglobin 15.8 g/dL (13.5-17.5) Hematocrit 44.0 % (41.0-53.0) Mean Corpuscular Volume 93.2 fL (80.0-100.0) Mean Corpuscular Hemoglobin 33.5 pg (28.0-32.0) Mean Corpuscular Hemoglobin Concent 35.9 g/dL (32.0-36.0) Red Cell Distribution Width 13.3 % (11.8-14.3) Platelet Count 359 10^3/uL (140-450) Mean Platelet Volume 6.6 fL (6.9-10.8) Neutrophils (%) (Auto) 88.9 % (37.0-80.0) Lymphocytes (%) (Auto) 7.3 % (10.0-50.0) Monocytes (%) (Auto) 3.4 % (0.0-12.0) Eosinophils (%) (Auto) 0.2 % (0.0-7.0) Basophils (%) (Auto) 0.2 % (0.0-2.0) Neutrophils # (Auto) 10.2 10 ^3/uL (1.6-8.6) Lymphocytes # (Auto) 0.8 10 ^3/uL (0.4-5.4) Monocytes # (Auto) 0.4 10 ^3/uL (0-1.3) Eosinophils # (Auto) 0 10 ^3/uL (0-0.8) Basophils # (Auto) 0 10 ^3/uL (0-0.2) Nucleated Red Blood Cells 0.1 % Sodium Level 141 mmol/L (136-145) Potassium Level 4.0 mmol/L (3.5-5.1) Chloride Level 106 mmol/L (98-107) Carbon Dioxide Level 23 mmol/L (20-31) Anion Gap 12 (5-15) Blood Urea Nitrogen 18 mg/dL (9-23) Creatinine 1.06 mg/dL (0.700-1.30) Glomerular Filtration Rate Calc 82 mL/min (>90) BUN/Creatinine Ratio 17.0 (10.0-20.0) Serum Glucose 108 mg/dL (74-106) Calcium Level 9.7 mg/dL (8.7-10.4) Other Laboratory Tests 12/07/24 07:04 Brief Hx & Hospital Course: This is a 54-year-old male presenting to the ED with a chief complaint of an allergic reaction. He reports undergoing a left inguinal hernia repair on 11/28/24 . Following these procedures, he was prescribed [place], Docusate, and Amoxicillin. Since then, he has developed persistent, generalized urticaria with associated pruritus and lower lip swelling. Despite a course of Prednisone and a steroid injection, symptoms have not improved. The patient has been taking Benadryl around the clock with minimal relief. He denies any throat swelling, shortness of breath, cough, or facial swelling. He sought care at an urgent care without improvement. Hospital course: Was admitted at the line of severe allergic reaction to possible amoxicillin/docusate/[place]. The patient was given methylprednisolone, IV fluid, Protonix and Benadryl. Abdominal CT scan showed 1.1 cm nonobstructive right kidney stone otherwise no significant intra-abdominal abnormalities. On 12/09/2024, the patient was feeling better since admission. Body rash and pruritus had decreased, discharge plan discussed with the patient the patient discharged home. Discharge plan: Follow up with the PCP within 1 week of the discharge Tablet prednisone 40 mg daily for 5 days Tablet Benadryl as needed for pruritus for 5 days EpiPen injection (2), as needed in case of severe allergic reaction, the patient was educated how to use the EpiPen injection Cream Benadryl for pruritus as needed Condition at Discharge: Good Final Diagnosis/Problems List #Severe, allergic reaction UTI cardia #s/p hernia repair, left 11/28/24 #Nephrolitihiasis #1.1 cm nonobstructive right renal stone #6 mm left basilar pulmonary nodule #Fluid in the left inguinal canal, possibly a seroma measuring up to 1.2 cm Ruled out renal colic Discharge Disposition: Home Discharge Statement: "Patient was advised to return to the ER or call 911 if any headaches, dizziness, shortness of breath, chest pain, abdominal pain, bleeding, fevers, or worsening of medical condition. Patient was counseled about treatment plan, medications, possible side effects, patientverbalized understanding. All questions were answered to the best of my ability. This discharge took greater then 30 minutes in planning, reviewing documentation, counseling the patient, and discussing with other team members." ASSESSMENT ASSESSMENT Assessment SANDY GUEVARA [facility] Dec 09, 2024 11:24
[2024-12-09] MEDS ORDERED: EPIN0.1I11 IJ (11:46)
[2024-12-09 12:38] VITALS: BP 132/73; PULSE 61; RESP 18; TEMP 97.4; O2SAT 97
[2024-12-09 13:00] VITALS: BP 132/73; PULSE 61; RESP 18; TEMP 97.9; O2SAT 97
== END 2024-12-09 14:52 | disposition home or self-care (01) | DRG 607 ==
LOC: ER 05:28 → OVERFLOW 14:34 → CENTRAL 21:48
PROVIDERS: ATTEND Emergency Medicine
DX: L50.9 Urticaria, unspecified (principal); N39.0 Urinary tract infection, site not specified; R91.8 Other nonspecific abnormal finding of lung field; R91.1 Solitary pulmonary nodule; S30.1XXA Contusion of abdominal wall, initial encounter; X58.XXXA Exposure to other specified factors, initial encounter; T78.49XA Other allergy, initial encounter; Z79.1 Long term (current) use of non-steroidal anti-inflammatories (NSAID); Z79.899 Other long term (current) drug therapy; Y93.89 Activity, other specified; Y92.89 Other specified places as the place of occurrence of the external cause; Y99.8 Other external cause status
CPT/HCPCS: 36415; 74177; 80048; 81001; 85025; 87081; 96374; 96375; G0378; J2470; J3490

== ENCOUNTER 2025-03-18 06:07 | Day surgery (SDC) | payer OTHER ==
[2025-03-14 09:59] LABS: Hematocrit 43.3 % (41.0-53.0); Hemoglobin 15.7 g/dL (13.5-17.5); Mean Corpuscular Hemoglobin 33.4 pg (28.0-32.0); Mean Corpuscular Volume 92.5 fL (80.0-100.0); Nucleated Red Blood Cells % 0.0 %
[2025-03-14 10:13] LABS: Urine Protein, UAD Negative (Negative)
[2025-03-14 10:15] LABS: Alanine Aminotransferase 17 U/L (7-40); Albumin 4.4 g/dL (3.2-4.8); Alkaline Phosphatase 82 U/L (46-116); Anion Gap 9 (5-15); BUN/Creatinine Ratio 14.3 (10.0-20.0); Bilirubin, Total 0.7 mg/dL (0.2-1.0); Blood Urea Nitrogen 15 mg/dL (9-23); Calcium 9.2 mg/dL (8.7-10.4); Carbon Dioxide 26 mmol/L (20-31); Glucose 96 mg/dL (74-106); INR 0.97 (0.9-1.15); Partial Thromboplastin Time 27.0 SEC (24.5-34.5); Potassium 4.0 mmol/L (3.5-5.1); Prothrombin Time 10.3 sec (9.3-11.8); Sodium 143 mmol/L (136-145); Total Protein 6.7 g/dL (5.7-8.2)
[2025-03-14 10:17] LABS: Chloride 108 mmol/L (98-107)
[~2025-03-18] VITALS: Ht 180.3 cm; Wt 88.9 kg
[~2025-03-18 06:07] MED LIST changes: -ACE3T PO; +HYDR-4798 PO; +SUMA100T15 PO
[2025-03-18] MEDS ORDERED: MORPHINE SULFATE 4 MG/ML SYR/VIAL IV PRN (07:00)
[2025-03-18] MEDS ORDERED: HYDROmorphone HCL 2 MG/ML VL/or syr IV PRN ×2 (07:00)
[2025-03-18] MEDS ORDERED: METOCLOPRAMIDE HCL 5MG/ml INJ 2ml VIAL IV PRN (07:00)
[2025-03-18] MEDS ORDERED: KETOROLAC TROMETH 30 MG/ML 1ML VIAL IV ONE (07:00)
[2025-03-18] MEDS ORDERED: MORPHINE SULFATE INJ 2 MG/ml SYRG IV PRN (07:00)
[2025-03-18] MEDS ORDERED: SUCCINYLCHOLINE CHLORIDE 20 MG/ML 10ML VIAL IV ONE (07:01)
[2025-03-18] MEDS ORDERED: ROCURONIUM 10MG/ML 10ML VIAL IV ONE (07:01)
[2025-03-18] MEDS ORDERED: SODIUM CHLORIDE LOCK 10 ML ONE (07:05)
[2025-03-18] MEDS ORDERED: MIDAZOLAM HCL 2MG/2ML 2ml VIAL (1mg/ml) ONE (07:05)
[2025-03-18] MEDS ORDERED: ONDANSETRON HCL 4 MG/2 ML VIAL ONE (07:05)
[2025-03-18] MEDS ORDERED: LIDOCAINE HCL 2% TOP JELLY 5ML TOP ONE (07:05)
[2025-03-18] MEDS ORDERED: GLYCOPYRROLATE 0.2 MG/ML 1ML VIAL ONE (07:05)
[2025-03-18] MEDS ORDERED: fentaNYL CITRATE 100 MCG/2 ML VL ONE (07:05)
[2025-03-18] MEDS ORDERED: LIDOCAINE 1% INJ PF 5ML AMP ONE (07:05)
[2025-03-18] MEDS ORDERED: KETAMINE 50mg/ML 1ml syringe ONE (07:05)
[2025-03-18] MEDS ORDERED: HYDROmorphone HCL 2 MG/ML VL/or syr ONE (07:05)
[2025-03-18] MEDS ORDERED: NEOSTIGMINE 1 MG/ML INJ (10mg/10ML VIAL) ONE (07:05)
[2025-03-18] MEDS ORDERED: PROPOFOL 10 MG/ML 20 ML IV ONE (07:05)
[2025-03-18] MEDS: BUPIVACAINE 0.5% P/F INJ 10 ML VIAL ONE (08:27)
[2025-03-18] MEDS: ceFAZolin 1GM VL ONE (08:38)
[2025-03-18 08:58] VITALS: PULSE 87; RESP 12; TEMP 97; O2SAT 96
--- NOTE | 2025-03-18 09:37 | DVHOP ---
DATE OF SURGERY: 03/18/2025 PREOPERATIVE DIAGNOSIS: Right inguinal hernia. POSTOPERATIVE DIAGNOSES: Right inguinal and right femoral hernias. SURGEON: Hector Powers MD CHEMICAL RESEARCH ENGINEER: Leobardo Baker. ANESTHESIA: General. ANESTHESIOLOGIST: Dr. Saavedra. PROCEDURE: Under general anesthesia administered by an LMA tube inserted by Dr. Saavedra. The patient's skin prepped and draped. An incision was made after infiltrating the proposed incision site with 0.25% Marcaine with epinephrine. The incision was deepened with electrocautery down to the fibers of the external oblique aponeurosis. At the site of the external inguinal ring, there was excess adipose tissue. However, no indirect hernia was encountered. There was a femoral hernia component which was mobilized and reduced and then held back with a small hernia plug of Marlex. This was secured with several interrupted nonabsorbable sutures. The floor of the inguinal canal was repaired using nonabsorbable sutures through the conjoint tendon and the reflecting portion of Poupart's ligament. Subsequently, the testicle was placed in its normal anatomical position. The wound was irrigated, irrigant was aspirated and approximated using 2-0 Monocryl sutures, Dermabond glue, and Steri-Strips. The patient remained stable throughout the procedure and left the operating room following an accurate needle and sponge counts. His Coral was thoroughly informed by calling [phone]. MD ELBERT Mayfield/KHADIJAH TID: [id number] RECEIPT: [id number]
[2025-03-18 10:02] VITALS: BP 120/76; PULSE 60; RESP 15; O2SAT 96
[2025-03-18] MEDS: LIDOCAINE W/ EPINEPHRINE 1% 20ML VIAL ONE (10:53)
== END 2025-03-18 10:20 | disposition home or self-care (01) ==
LOC: SUR 06:07
PROVIDERS: ATTEND Surgery
DX: K41.90 Unilateral femoral hernia, without obstruction or gangrene, not specified as recurrent (principal); K40.90 Unilateral inguinal hernia, without obstruction or gangrene, not specified as recurrent; G43.909 Migraine, unspecified, not intractable, without status migrainosus; Z79.899 Other long term (current) drug therapy; Z87.442 Personal history of urinary calculi; Z98.890 Other specified postprocedural states; Z87.891 Personal history of nicotine dependence; Z88.1 Allergy status to other antibiotic agents; Z88.8 Allergy status to other drugs, medicaments and biological substances; Z91.040 Latex allergy status
CPT/HCPCS: 36415; 49550; 80053; 81001; 85025; 85610; 85730; 86850; 86900; 86901; C1781; J0330; J0690; J1100; J1171; J1956; J2250; J2405; J2704; J3010; J3490